=== PATIENT | male | born 1975 | race Caucasian/White ===

== ENCOUNTER 2017-02-19 06:57 | Day surgery (SDC) | payer OTHER ==
[~2017-02-19] VITALS: Ht 177.8 cm; Wt 112.2 kg
== END 2017-02-19 12:05 ==
LOC: SHSB 06:57 → SRG 06:57 → ORW 08:45 → PACU 10:05 → SHSB 10:35 → SRG 12:05
PROC: 0WUF4JZ Supplement Abdominal Wall with Synthetic Substitute, Percutaneous Endoscopic Approach (ICD-10-PCS; principal; 2017-02-19)
DX: K43.9 Ventral hernia without obstruction or gangrene (principal); E66.01 Morbid (severe) obesity due to excess calories; Z98.890 Other specified postprocedural states; Z79.899 Other long term (current) drug therapy; K82.8 Other specified diseases of gallbladder
CPT/HCPCS: C1781; J0690; J7030